=== PATIENT | male | born 1990 | race Caucasian/White ===

== ENCOUNTER 2023-03-22 12:59 | Emergency (ER) | payer OTHER, MEDICAID, SELFPAY ==
[2023-03-22 13:42] VITALS: BP 125/63; PULSE 68; RESP 18; TEMP 36.3; O2SAT 99; BMI 23.5
--- NOTE | 2023-03-22 13:42 | ED.GENADULT ---
HPI - General Adult General Chief complaint: Dizziness Stated complaint: Dizziness Time Seen by Provider: 03/22/23 17:13 Related Data Previous Rx's Medication Instructions Recorded tenofovir alafenamide 25 mg tablet 25 mg PO DAILY 30 days #30 tabs 01/29/20 (Vemlidy) Allergies Allergy/AdvReac Type Severity Reaction Status Date / Time Chocolate Allergy Migraine Verified 03/22/23 13:42 Physical Exam ED Vital Signs: BMI result Body Mass Index 23.5 Course Course Course Narrative: RME- 32 year old male presents for evaluation of sudden onset dizziness he reports he was folding laundry when the symptoms started. Denies any medical history Discharge Plan Discharge Clinical Impression: Dizziness Patient Disposition: Left W/O Completing Treatment Prescriptions: No Action Vemlidy 25 mg tablet 25 mg PO DAILY 30 Days Qty: 30 5RF Rx Instructions: must administer with a meal/food Discharge Date/Time: 03/22/23 17:34
--- NOTE | 2023-03-22 13:44 | ECG_ITS ---
Test Reason : dizzines Blood Pressure : / mmHG Vent. Rate : 052 BPM Atrial Rate : 052 BPM P-R Int : 120 ms QRS Dur : 124 ms QT Int : 428 ms P-R-T Axes : 071 079 057 degrees QTc Int : 398 ms Sinus bradycardia Non-specific intra-ventricular conduction delay Borderline ECG No previous ECGs available Referred By: Romel Abdi Electronically Signed By:SHAHAB RODRIGUEZ
--- NOTE | 2023-03-22 14:38 | MHC.EDTECH ---
after this pct completed ekg in triage the patient stated that they refused further labs.
== END 2023-03-22 17:34 | disposition left against medical advice (07) ==
PROVIDERS: Emergency Provider Emergency Medicine
DX: R42 Dizziness and giddiness (principal); R00.1 Bradycardia, unspecified
CPT/HCPCS: 93005; 99283

== ENCOUNTER → 2023-03-22 13:44 | Outpatient (BNV) | payer OTHER, MEDICAID, SELFPAY | PROVIDERS: Visit Provider Internal Medicine | DX: R00.1 Bradycardia, unspecified (principal) | CPT/HCPCS: 93010 ==

== ENCOUNTER 2025-01-12 20:58 | Emergency (ER) | payer OTHER, SELFPAY ==
--- NOTE | ~2025-01-12 | XR_ITS ---
CLINICAL HISTORY: cp 2 view chest x-ray Comparison: None provided Findings: No consolidation, pneumothorax, or pleural effusion. Imaged cardiac silhouette is at the upper limits of normal. No acute fracture. IMPRESSION: No consolidation. This document has been electronically signed by: Chemo Hernandez MD on 01/12/2025 22:15:50
--- NOTE | 2025-01-12 21:02 | ECG_ITS ---
Test Reason : CP Blood Pressure : */* mmHG Vent. Rate : 77 BPM Atrial Rate : 77 BPM P-R Int : 158 ms QRS Dur : 116 ms QT Int : 376 ms P-R-T Axes : 71 61 32 degrees QTcB Int : 425 ms Normal sinus rhythm with sinus arrhythmia Incomplete right bundle branch block Borderline ECG When compared with ECG of 22-Mar-2023 14:34, Vent. rate has increased by 25 bpm Referred By: Sondra Ruiz Electronically Signed By: SHAHAB RODRIGUEZ
[2025-01-12 21:27] VITALS: BP 111/72; PULSE 77; RESP 16; TEMP 36.8; O2SAT 100; BMI 24.5
[2025-01-12 22:04] LABS: MANUAL DIFF FLAG NO
[2025-01-12 22:07] LABS: Hematocrit 42.0 % (42.0-52.0); Hemoglobin 14.9 g/dl (14.0-18.0); Imm Gran Abs Auto 0.02 X10*3/uL (0.00-0.03); Imm Gran Pct Auto 0.2 % (0.0-0.4); Lymphocytes Absolute Auto 1.9 X10*3/uL (1.2-4.9); Mean Corpuscular HGB Conc 35.5 g/dl (31.0-36.0); Mean Corpuscular Hemoglobin 31.4 pg (27.0-33.0); Mean Corpuscular Volume 88.6 fL (80.0-98.0); NRBC Abs Auto 0.000 X10*3/uL (0.0-0.012); NRBC Pct Auto 0.0 /100WBC (0.0-0.2); Platelet Count 145 X10*3/uL (160-400); Red Blood Count 4.74 X10*6/uL (4.60-5.80); White Blood Count 9.3 X10*3/uL (4.8-10.8)
--- NOTE | 2025-01-12 22:10 | PC.NURSE ---
Pt placed on panel monitor for monitoring. call del cid within reach. awaiting lab results. Plan of care ongoing
--- OUTSIDE RECORDS SUMMARY | 2025-01-12 22:12 | XMS_ITS | Clinical Summary ---
Author Organization [facility] Address [address] [place] [phone] Phone Care Team Providers Care Certified Social Workers In Health Care Name Role Phone Unavailable Primary Care Provider Unavailabl e Immunizations Immunization Administration Dates Next Due DTP 07/14/1993, 1,1989,08/13,1989 Hep B, ped/adol 08/01/1999,02/07/1999,01/06/1999 Hib (PRP-T) 06/13/1990,03/15/1990 MMR 09/05/2000,06/13/1990 Meningococcal Conj (Menactra) MCV4P 11/27/2006 OPV 07/14/1993, 1,1989,06/13 Td (adult) (MBL), 2 Lf tetan us toxoid, PF, adsorbed 09/05/2000 Tdap 11/27/2006 Family History Relation Name Status Comments Brother Alive Brother: Allerg ic rhinitis, Alive and well Father Father: Migrain es Mother Alive Mother: Alive a nd well Social History Tobacco Use Types Packs/Day Years Used Date Smoking Tobacco: Never Assessed Sex and Gender Information Value Date Recorded Sex Assigned at Not on file Legal Sex Male 4:25 PM EDT Gender Identity Not on file Sexual Orientation Not on file Plan of Treatment Health Maintenance Due Date Last Done Comments Varicella Vaccines (1 of 2 - 13+ 2-dose series) 2002 HPV Vaccines (1 - 3-dose SCDM series) 2016 DTaP,Tdap,and Td Vaccines (7 - Td or Tdap) 11/27/2016 11/27/2006, 09/05/2000, 07/14/1993, Additional history exists Influenza Vaccines (#1) 2024 COVID-19 Vaccine (2024- season) 2024 HIB Vaccines Aged Out 06/13/1990, 03/15/1990 No lo nger eligible based on patient's age to complete this topic IPV Vaccines Completed 07/14/1993, 07/0 04/1990, 1989, Additional history exists Hepatitis B Vaccines Completed 08/01/1999, 02/07/1999, 01/06/1999 MMR Vaccines Completed 09/05/2000, 06/13/1990 Meningococcal Vaccine Completed 11/27/2006 Hepatitis A Vaccines Aged Out No long er eligible based on patient's age to complete this topic Men B Vaccine Aged Out No longer elig ible based on patient's age to complete this topic Pneumococcal Vaccine Aged Out No long er eligible based on patient's age to complete this topic
--- OUTSIDE RECORDS SUMMARY | 2025-01-12 22:12 | XMS_ITS | Encounter Summary ---
Author Organization [facility] Address [address] [place] [address] Phone Care Team Providers Care Offal Roller Name Role Phone Bethel Abdi MD Primary Care Provider [phone] Encounter Details Date Type Department Care Team (Late st Contact Info) Description 11/29/2016 Conversion Encounter [facility] [address] [place] [address] Social History Tobacco Use Types Packs/Day Years Used Date Smoking Tobacco: Never Assessed Sex and Gender Information Value Date Recorded Sex Assigned at Not on file Legal Sex Male 4:25 PM EDT Gender Identity Not on file Sexual Orientation Not on file documented as of this encounter Plan of Treatment Not on file documented as of this encounter Visit Diagnoses Not on filedocumented in this encounter Care Teams Offal Roller Relationship Specialty Start Date End Date Bethel Abdi MD [address] [facility] [place] [address] PCP - General 11/23/16 07/17/22 documented as of this encounter
--- OUTSIDE RECORDS SUMMARY | 2025-01-12 22:12 | XMS_ITS | Clinical Summary ---
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 Immunizations Immunization Administration Dates Next Due Hepatitis B Adult 08/01/1999,02/07/1999,01/06/19 99 MMR 06/13/1990 Tdap 11/02/2016,11/27/2006 Family History Medical History Relation Comments Sudden cardiac Brother While shawn barajas Relation Status Comments Brother Social History Tobacco Use Types Packs/Day Years Used Date Smoking Tobacco: Never Alcohol Use Standard Drinks/Week Comments Yes 1 (1 standard drink = 0.6 oz pur e alcohol) Education Answer Date Recorded Are you interested in more education? Not on ramos e 08/10/2022 Are you concerned about learning? Not on file 08/10/2022 No 08/10/2022 No 08/10/2022 Digital Access Answer Date Recorded No 09/10/2022 No 09/10/2022 No 09/10/2022 Reliable internet access at home? Not on file 09/10/2022 Device with a working camera? Not on file Sex and Gender Information Value Date Recorded Sex Assigned at Not on file Legal Sex Male 10:39 AM EDT Gender Identity Not on file Sexual Orientation Not on file Last Filed Vital Signs Vital Sign Reading Time Taken Comments Blood Pressure 120/80 11/30/2015 6:07 PM EDT Pulse - - Temperature - - Respiratory Rate - - Oxygen Saturation - - Inhaled Oxygen Concentration - - Weight 63.5 kg (140 lb) 03/19/2016 2:26 PM EST Height 172.7 cm (5' 8 ) 03/19/2016 2:26 PM EST Body Mass Index 21.29 03/19/2016 2:26 PM EST Plan of Treatment Health Maintenance Due Date Last Done Comments LIPID PANEL 1989 DEPRESSION SCREENING 2001 HEPATITIS C SCREENING 2007 HIV ONE-TIME SCREENING (18-6 5 YEARS) 2007 SMOKING STATUS SCREENING (On ce After 26 Yrs) 2015 INFLUENZA VACCINE (#1) 2024 COVID-19 VACCINE ( - 2023-2 5 season) 2024 Adult Td,Tdap Booster 11/02/2026 11/02/2016 , 11/27/2006 HEPATITIS A VACCINES Aged Out No long er eligible based on patient's age to complete this topic HIB VACCINES Aged Out No longer eligi ble based on patient's age to complete this topic MENINGOCOCCAL VACCINES (ACWY) Aged Out No longer eligible based on patient's age to complete this topic MENINGOCOCCAL VACCINES (B) Aged Out N o longer eligible based on patient's age to complete this topic PNEUMOCOCCAL VACCINES (0-49 years) Aged Out No longer eligible b ased on patient's age to complete this topic Medical Devices Not on file Care Teams Helmet Binder Relationship Specialty Start Date End Date Ubaldo Rondon MD [address] [place] [address] PCP - General Family Medicine 09/20/15 Additional Source Comments The information contained in this document represents components of the legal health record. It is not the complete legal health record.[facility]
--- OUTSIDE RECORDS SUMMARY | 2025-01-12 22:12 | XMS_ITS | Clinical Summary ---
Author Organization [facility] Address [address] [place] [address] Care Team Providers Care Revenue Cycle Specialist Name Role Phone Provider, Not In System Primary Care Provider Un available Social History Tobacco Use Types Packs/Day Years Used Date Smoking Tobacco: Never Assessed Sex and Gender Information Value Date Recorded Sex Assigned at Not on file Gender Identity Not on file Sexual Orientation Not on file Plan of Treatment Not on file Care Teams Revenue Cycle Specialist Relationship Specialty Start Date End Date Provider, Not In System PCP - General 07/23/13
--- OUTSIDE RECORDS SUMMARY | 2025-01-12 22:12 | XMS_ITS ---
Author Name [facility] Organization Unknown Care Team Organization Name Specialty Phone Email Start Date End Da te [facility] NULL Primary Care 02/20/2022 12/02/2023
[2025-01-12 22:23] LABS: Alanine Aminotransferase 28 U/L (0-40); Albumin Level 5.1 g/dL (3.5-5.0); Alkaline Phosphatase 57 U/L (39-117); Anion Gap 14 (12-20); Aspartate Amino Transferase 23 U/L (5-37); Blood Urea Nitrogen 16 mg/dL (9-16); Calcium 10.3 mg/dL (8.4-10.2); Carbon Dioxide 29 mmol/L (22-29); Chloride 105 mmol/L (96-108); Creatinine Clr Calc Pharmacy 92.6; Estimated Glomerular Filt Rate > 60; Magnesium 2.3 mg/dL (1.6-2.6); Potassium 4.3 mmol/L (3.3-5.1); Sodium 144 mmol/L (135-145); Total Protein 7.4 g/dL (6.5-8.0)
[2025-01-12 22:32] LABS: Troponin-I High Sensitivity 9.6 ng/L (<3.5-35.0)
--- NOTE | 2025-01-13 00:30 | ED_ITS ---
HPI - Chest Pain General Chief Complaint: Chest Pain Stated Complaint: Chest pain Time Seen by Provider: 01/13/25 00:30 Source: patient Mode of arrival: ambulatory Limitations: no limitations History of Present Illness ED Provider: Dr. Elaina Kelly HPI narrative: 34 year old male with history of congenital heart defect s/p repair presenting with substernal chest pain radiating to the back ongoing for the last several hours after eating dinner tonight. Describes pain as sharp, stabbing, constant, worse with deep breaths and more severe than other chest pain he's had in the past associated with his open heart surgery. Admits to recent travel to [facility] about 3 weeks ago. After travel, he'd developed a URI which he feels that he's recovered from for at least a week. Denies assocaited leg pain or swelling. No reported fever. Tigre productive cough. No history of clotting disorders. Had a brother that in his teens from sudden cardiac . Related Data Previous Rx's ?Medication ?Instructions ?Recorded tenofovir alafenamide 25 mg tablet 25 mg PO DAILY 30 d ays #30 tabs 01/29/20 (Vemlidy) Allergies Allergy/AdvReac Type Severity Reaction Status Date / Time Chocolate Allergy Migraine Verified 01/12/25 21:28 Review of Systems 2 Review of Systems: as per HPI, full review of systems performed and negative but for the above mentioned pertinent positives and negatives. FORMERLY [facility], [facility]–1983 Social History Social History Smoked in Last 30 Days: No Use of substances other than those prescribed or required for medical reasons: No Advance Directives: No Advance Directives Information Provided: No Do you have a plan to hurt others: No Plan Physical Exam 2 Exam: Exam: GENERAL: Anxious, nontoxic appearing. SKIN: Normal skin color for ethnicity, warm, dry, intact, no rashes noted. HEENT: Normocephalic, atraumatic, no stridor, posterior oropharynx nonerythematous, dentition intact, EOMI. NECK: Soft, supple, full ROM, midline structures nontender, no step-offs, no deformities, no lymphadenopathy. CHEST: Heart regular tachycardia, no murmurs, symmetric chest rise and fall, no crepitus, no TTP overlying the chest. PULMONARY: Clear to auscultation bilaterally, no labored breathing, no wheezes/rhales/ rhonchi. ABDOMINAL: Soft, nondistended, nontender, positive bowel sounds in all quadrants. : Deferred. MUSCULOSKELETAL: Normal tone, full range of motion, no deformities, no peripheral edema. NEURO: Alert and oriented x3, CN II through XII intact, equal strength and sensation bilateral upper and lower extremities, no focal neurologic deficits. PSYCHIATRIC: Anxious affect, fluid speech, good eye contact and appropriate demeanor. Vital Signs: Vital Signs: Last Vital Signs Temp 97.8 F 01/13/25 02:48 Pulse 65 01/13/25 02:48 Resp 16 01/13/25 02:48 BP 112/63 01/13/25 02:48 Pulse Ox 97 01/13/25 02:48 O2 Del Method Room Air 01/13/25 02:48 BMI result Body Mass Index 24.5 Medical Decision Making Medical Decision Making [facility] Narrative: Patient presents today with a chief complaint of chest pain. Differential diagnosis includes, but is not limited to, acute coronary syndrome, musculoskeletal pain, pneumothorax, GERD, pleurisy, pulmonary embolism, dissection, among others. I will order EKG, chest x-ray, laboratory workup including cardiac enzymes to further evaluate for etiology. D-dimer is negative. Patient is resting, feeling improved and tolerating oral intake in the ED. Using shared decision making, plan for discharge home to follow-up with primary care and/or specialist.? Patient understands and agrees with plan for discharge.? Discharged home in stable condition. Differential Diagnosis Differential Diagnoses: The differential diagnosis associated with the presentation includes (as above) Admission/Observation Consideration of admission/observation: Escalation of care including admission/observation considered Lab Data [facility] Lab Attestation statement: I reviewed the patient's lab results. 01/12/25 21:58 01/12/25 21:58 Labs: Lab Results 01/12/25 01/13/25 Range/Units 21:58 01:38 WBC 9.3 (4.8-10.8) X10*3/uL RBC 4.74 (4.60-5.80) X10*6/uL Hgb 14.9 (14.0-18.0) g/dl Hct 42.0 (42.0-52.0) % MCV 88.6 (80.0-98.0) fL MCH 31.4 (27.0-33.0) pg MCHC 35.5 (31.0-36.0) g/dl RDW 12.6 (11.0-16.0) % Plt Count 145 L (160-400) X10*3/uL MPV 10.3 (9.4-12.4) fL Immature Gran % (Auto) 0.2 (0.0-0.4) % Neut % (Auto) 72.5 (45-73) % Lymph % (Auto) 20.9 (20-40) % Burnet % (Auto) 6.0 (2-11) % Eos % (Auto) 0.3 (0-4) % Baso % (Auto) 0.1 (0-2) % Lymph # (Auto) 1.9 (1.2-4.9) X10*3/uL Burnet # (Auto) 0.6 (0.1-1.2) X10*3/uL Eos # (Auto) 0.0 (0.0-0.4) X10*3/uL Baso # (Auto) 0.0 (0.0-0.2) X10*3/uL Abs Immat Gran (auto) 0.02 (0.00-0.03) X10*3/uL Absolute Neuts (auto) 6.7 (2.0-8.3) x10*3/uL Absolute Nucleated RBC 0.000 (0.0-0.012) X10*3/uL Nucleated RBC % (auto) 0.0 (0.0-0.2) /100WBC D-Dimer High Sensitivty 201 NG/ML Sodium 144 (135-145) mmol/L Potassium 4.3 (3.3-5.1) mmol/L Chloride 105 (96-108) mmol/L Carbon Dioxide 29 (22-29) mmol/L Anion Gap 14 (12-20) BUN 16 (9-16) mg/dL Creatinine 1.04 (0.5-1.4) mg/dL Estim Creat Clear Calc 92.6 Estimated GFR > 60 Random Glucose 108 (60-115) mg/dL Calcium 10.3 H (8.4-10.2) mg/dL Magnesium 2.3 (1.6-2.6) mg/dL Total Bilirubin 1.1 H (0.0-1.0) mg/dL AST 23 (5-37) U/L ALT 28 (0-40) U/L Alkaline Phosphatase 57 (39-117) U/L Troponin I High Sens 9.6 9.7 (<3.5-35.0) ng/L Total Protein 7.4 (6.5-8.0) g/dL Albumin 5.1 H (3.5-5.0) g/dL Independent Interpretation I performed an independent interpretation of an: EKG and Plain X-Ray Interpretation: My independent interpretation of the chest x-ray reveals no consolidations, pulmonary edema, pleural effusion, pneumothorax, obvious bony abnormalities. My independent interpretation of the ECG reveals normal sinus rhythm with rate of 77, normal axis, nonspecific interventricular conduction delay,, no ST elevations or depressions to suggest ischemic changes, no previous for comparison. Radiology Impression Discussion of test interpretation with radiology: I have reviewed the radiologist's reading. Independent Historian Clinical information obtained from an independent historian. History obtained from or confirmed by: Spouse Prescription Management I considered prescription management with: Pain Medication Chronic Conditions Patient?s care impacted by: Other (congenital heart disease) Discharge Plan Discharge Clinical Impression: Pleurisy Patient Disposition: Home, Self-Care Instructions: Pleurisy (ED) Additional Instructions: Your workup today has been reassuring. Your cardiac enzyme was flat (9.6, 9.7) and your D-dimer was negative. Very low suspicion for pulmonary embolism or acute coronary syndrome. Pain may be related to acid reflux versus musculoskeletal injury in your chest wall versus pleurisy from your recent URI. 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 Make an appointment sooner than April if you can. Return to the emergency department if you develop any new or worsening symptoms including: Worsening chest pain, fevers greater than 100?, sputum production, passing out, any new symptom that concerns you. Good luck at your new job. Prescriptions: No Action Vemlidy 25 mg tablet 25 mg PO DAILY 30 Days Qty: 30 5RF Rx Instructions: must administer with a meal/food Interventions: ED Discharge Assessment Last Done: 01/13/25 02:48 Discharge Date/Time: 01/13/25 02:49 Print Language: Turkmen
[2025-01-13 01:55] LABS: D Dimer High Sensitivity 201 NG/ML
[2025-01-13 02:06] LABS: Troponin-I High Sensitivity 9.7 ng/L (<3.5-35.0)
[2025-01-13 02:36] VITALS: BP 112/63; PULSE 65; RESP 16; TEMP 36.6; O2SAT 97
[2025-01-13 02:48] VITALS: BP 112/63; PULSE 65; RESP 16; TEMP 36.6; O2SAT 97
== END 2025-01-13 02:49 | disposition home or self-care (01) ==
PROVIDERS: Emergency Provider Emergency Medicine; PCP Internal Medicine
DX: R09.1 Pleurisy (principal); R07.9 Chest pain, unspecified; I49.9 Cardiac arrhythmia, unspecified; I45.10 Unspecified right bundle-branch block; Z86.79 Personal history of other diseases of the circulatory system
CPT/HCPCS: 36415; 71046; 80053; 83735; 84484; 85025; 85379; 93005; 99283; 99285

== ENCOUNTER → 2025-01-12 21:02 | Outpatient (BNV) | payer OTHER, SELFPAY | PROVIDERS: Emergency Provider Emergency Medicine; PCP Internal Medicine; Visit Provider Internal Medicine | DX: I45.10 Unspecified right bundle-branch block (principal); I49.9 Cardiac arrhythmia, unspecified | CPT/HCPCS: 93010 ==

== ENCOUNTER → 2025-01-12 21:45 | Outpatient (BNV) | payer OTHER, SELFPAY | PROVIDERS: PCP Internal Medicine; Visit Provider Radiology Neuroradiology | DX: R07.9 Chest pain, unspecified (principal) | CPT/HCPCS: 71046 ==